=== PATIENT | male | born 1980 | race Caucasian/White ===

== ENCOUNTER 2017-05-03 01:19 | Emergency (ER) | payer BC, OTHER ==
[2017-05-03 01:30] VITALS: BP 152/76
--- NOTE | 2017-05-03 01:39 | EDM.PDOC ---
ED HPI GENERAL MEDICAL PROBLEM - General Chief Complaint: Upper Extremity Injury/Pain Stated Complaint: pain in shoulder Time Seen by Provider: 05/03/17 01:29 - History of Present Illness INITIAL COMMENTS - FREE TEXT/NARRATIVE: 37-year-old male presents to the emergency room with pain underneath the scapula. This started a couple weeks ago after the patient slept on the couch and is progressively gotten worse. The patient is seen his massage therapist started to help however the pain started to get worse again the patient was seen in minor care earlier today and started on Voltaren and Flexeril which I agree with however he is still having pretty significant pain and is not able to get any rest tonight. His last dose of Voltaren was at 10:30 this evening. He has an appointment with the massage therapist tomorrow afternoon Past medical history noncontributory is not on any routine medications. - Related Data Allergies Allergy/AdvReac Type Severity Reaction Status Date / Time erythromycin lactobionate Allergy Cannot Verified 01/24/14 09:33 [From Erythrocin] Remember meperidine HCl [From Demerol] Allergy Hives Verified 01/24/14 09:32 Home Meds: Home Meds Amoxicillin/Clavulanate K [Augmentin 875 MG] 1 tab PO BID #14 tablet 01/24/14 [ Rx] Diclofenac Sodium PO BID 01/24/14 [History] Social & Family History - Tobacco Use Smoking Status *Q: Never Smoker Second Hand Smoke Exposure: No - Alcohol Use Days Per Week of Alcohol Use: 1 Number of Drinks Per Day: 1 Total Drinks Per Week: 1 - Recreational Drug Use Recreational Drug Use: No Review of Systems - Review of Systems Review Of Systems: See Below Constitutional: Reports: No Symptoms Respiratory: Reports: No Symptoms Cardiovascular: Reports: No Symptoms GI/Abdominal: Reports: No Symptoms ED EXAM, GENERAL - Physical Exam Exam: See Below Exam Limited By: No Limitations General Appearance: Alert, No Apparent Distress Head: Atraumatic, Normocephalic Neck: Normal Inspection, Supple, Non-Tender, Full Range of Motion Respiratory/Chest: No Respiratory Distress, Lungs Clear, Normal Breath Sounds Cardiovascular: Regular Rate, Rhythm, No Edema, No Murmur Back Exam: Other (Patient has marked pain under his right scapula. Maneuver is arm to move the scapula does not expose the tender area just makes the pain little bit worse he actually does better with his arm up above his head. Right shoulder is otherwise unremarkable as is the remainder of the upper extremity neurovascular status normal no other abnormalities noted on his back) Extremities: Normal Inspection, Normal Range of Motion Neurological: Alert, Oriented, Normal Cognition Course - Re-Assessments/Exams Free Text/Narrative Re-Assessment/Exam: 05/03/17 01:44 The patient is a worsening subscapularis strain I agree with the Flexeril however with the recent dose of nonsteroidal really cannot give him a shot of Toradol at this time we'll give him a few [place] to use with bad moments he can start this when he gets home. I've explained to the patient in absolutely no uncertain terms he must allow 12 hours after taking the [place] before driving or returning to work the same rules should apply with the Flexeril. Departure - Departure Time of Disposition: 01:45 Disposition: Home, Self-Care 01 Clinical Impression: Strain of right subscapularis muscle - Discharge Information Referrals: Sabas Yañez Jr, MD [Primary Care Provider] - Forms: ED Department Discharge Additional Instructions: Return to the emergency room with any questions problems worsening symptoms. Follow-up with your regular physician on Sunday to be sure this is getting better. When you taking the Flexeril allow 12 hours after taking it before driving or returning to work. I have given you a few hydrocodone 5/325 #10 from the machine in the waiting room take one every 6 hours as needed for the more severe pain not controlled by the medications you were given at the walk-in clinic today. Allow 12 hours after using the hydrocodone before driving or returning to work. Follow-up at the massage therapist tomorrow as you have scheduled.
== END 2017-05-03 01:50 | disposition home or self-care (01) ==
LOC: JD.ED 01:19
DX: S46.811A Strain of other muscles, fascia and tendons at shoulder and upper arm level, right arm, initial encounter (principal); X58.XXXA Exposure to other specified factors, initial encounter
CPT/HCPCS: 99283